=== PATIENT | female | born 2000 | race Caucasian/White ===

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

== ENCOUNTER 2020-12-23 21:11 | Emergency (ER) | payer MEDICAID ==
[~2020-12-23] VITALS: Ht 170.2 cm; Wt 89.0 kg
[2020-12-23 23:21] LABS: BASOPHILS % 0.5 % (0.0-2.0); EOSINOPHILS % 1.3 % (0.0-5.0); HEMATOCRIT. 34.8 % (36.0-48.0); LYMPHOCYTES % 27.7 % (20.0-50.0); MEAN CORPUSCULAR HEMOGLOBIN 31.4 pg (28.0-32.0); MEAN CORPUSCULAR VOLUME 90.8 fL (81.0-99.0); MEAN PLATELET VOLUME 8.3 fl (7.4-10.4); MONOCYTES % 8.4 % (2.0-8.0); NEUTROPHILS % 62.1 % (40.0-76.0); PLATELET 297 x1000/uL (130-400); RED BLOOD CELL COUNT 3.83 mill/uL (4.2-5.4); RED CELL DISTRIBUTION WIDTH 13.4 % (11.6-14.6)
[2020-12-23 23:29] LABS: CHLORIDE 108 mEq/L (98-107)
[2020-12-23 23:39] LABS: B-HCG QUANTITATIVE < 1 mIU/mL (<3)
[2020-12-24] MEDS ORDERED: IBUP-2028 MT (01:07)
[2020-12-24 01:08] LABS: CLARITY URINE CLEAR (CLEAR); COLOR URINE YELLOW (YELLOW); KETONES URINE TRACE (NEGATIVE); LEUKOCYTE ESTERASE URINE NEGATIVE (NEGATIVE); NITRITE URINE NEGATIVE (NEGATIVE); OCCULT BLOOD URINE 3+ (NEGATIVE); PROTEIN URINE NEGATIVE (NEGATIVE); SPECIFIC GRAVITY URINE 1.024 (1.005-1.030)
[2020-12-24] MEDS ORDERED: ONDANSETRON 4MG ODT PO ONE (01:15)
[2020-12-24] MEDS ORDERED: ACETAMINOPHEN 325MG TABLET PO ONE (01:15)
[2020-12-24 02:57] VITALS: BP 123/72
== END 2020-12-24 02:57 | disposition home or self-care (01) ==
LOC: ER 21:11
DX: N93.8 Other specified abnormal uterine and vaginal bleeding (principal)
CPT/HCPCS: 36415; 76830; 76856; 80053; 81003; 84702; 85025; 86850; 86900; 86901; 99284; Q0162

== ENCOUNTER 2022-05-21 10:28 | Emergency (ER) | payer MEDICAID ==
[~2022-05-21] VITALS: Ht 172.7 cm; Wt 87.0 kg
[~2022-05-21 10:28] MED LIST: IBUP-2028 MT
[2022-05-21 10:33] VITALS: BP 130/80
== END 2022-05-21 16:55 | disposition left against medical advice (07) ==
LOC: ER 10:28
DX: Z53.21 Procedure and treatment not carried out due to patient leaving prior to being seen by health care provider (principal)